=== PATIENT | male | born 1935 | race Caucasian/White ===

== ENCOUNTER 2021-09-20 14:00 | Emergency (ER) | payer MEDICARE, SELFPAY ==
[2021-09-20 14:28] VITALS: BP 128/73; PULSE 110; PULSE 40; RESP 28; RESP 36; TEMP 36.9; O2SAT 76; O2SAT 91
[2021-09-20 14:34] VITALS: PULSE 40
--- NOTE | 2021-09-20 14:35 | ED.SOB ---
HPI - SOB/Dyspnea General Chief Complaint: Shortness of Breath/Dyspnea Stated Complaint: Shortness of breath Time Seen by Provider: 09/20/21 14:16 Source: patient, family and RN notes reviewed Mode of arrival: ambulatory ( with walker) Limitations: no limitations History of Present Illness HPI Narrative: Patient arrives with family member complaining of cough and shortness of breath for some time. Symptoms have worsened over the last 2 days. Patient was diagnosed pneumonia, based on symptoms, over the phone, by his PCP and placed on azithromycin and prednisone. History of COPD and is on home oxygen at 2 L. Because the symptoms have been worsening, family has sought treatment here wanting IV fluids and IV antibiotics. They state that patient is at the point where he is likely going to be on hospice soon. He does not want to be admitted to the hospital and that is why they did not seek treatment in the ER today. MD elicited complaint: shortness of breath Related Data Home Medications Medication Instructions Recorded Confirmed acetaminophen-codeine tablet 09/20/21 alendronate mg PO 09/20/21 azithromycin 09/20/21 brimonidine [Alphagan P] drp 09/20/21 dorzolamide 1 drp EACH EYE DAILY 09/20/21 doxepin 100 mg PO DAILY 09/20/21 enalapril maleate 10 mg PO DAILY 09/20/21 [id number]-[id number]-[id number] 1 inh INHALATION 09/20/21 [Trelegy Ellipta] furosemide 20 mg PO DAILY 09/20/21 prednisone 10 mg PO DAILY 09/20/21 travoprost 1 drp EACH EYE DAILY 09/20/21 Allergies Allergy/AdvReac Type Severity Reaction Status Date / Time No Known Allergies Allergy Verified 09/20/21 14:30 Review of Systems Review of Systems: CONSTITUTIONAL: Denies body aches, fever, chills, or sweats. EYES: Denies visual changes, redness, or discharge. ENT: Denies rhinorrhea, congestion, sore throat, or otalgia. CARDIOVASCULAR: Denies chest pain, palpitations, or edema. RESPIRATORY: + Cough, worsening shortness of breath GASTROINTESTINAL: Denies abdominal pain, nausea, vomiting, or diarrhea. GENITOURINARY: Denies dysuria or hematuria. SKIN: Denies rash, itching, or wounds. MUSCULOSKELETAL: Denies back pain, joint pain, or myalgia. NEUROLOGIC: Denies headache, numbness, tingling, or weakness. PSYCH: Denies depression or anxiety. [facility] Past Medical History Medical History COPD (chronic obstructive pulmonary disease) On home oxygen therapy Comments At time of signature, I have reviewed and agree with nursing past medical, surgical, social and family history unless otherwise noted. Please see nursing chart for further information. There is no relevant family history pertinent to the presenting complaint Exam Narrative: GENERAL: Ill-appearing. HEAD: Normocephalic, atraumatic. EYES: EOMI. No redness or drainage. Conjunctivae normal. ENT: Mucous membranes pink and moist. NECK: Normal AROM. CHEST: Marked respiratory distress. Inspiratory wheezing throughout. Diminished in bases. Abdominal breathing with retractions. Tachypnea. HEART: Irregularly irregular. Bradycardic. No murmur appreciated. ABDOMEN: Soft, nontender, nondistended, normal active bowel sounds. EXTREMITIES: Normal range of motion. No edema. Cold extremities and pallor. SKIN: Warm, dry, no rash. Capillary refill >3 sec. Normal skin turgor. NEURO: No focal deficits. Alert and oriented x3. Gait unsteady with walker. PSYCH: Normal affect. No signs of depression or anxiety. Course Course Emergency Course: Patient was placed on 4 L nasal cannula as well as nonrebreather via concentrator upon arrival. Patient has refused ambulance transfer and has signed an AMA form to this effect. Level of Care: Express Care Visit Vital Signs Vital signs: Vital Signs Temperature 98.5 F 09/20/21 14:28 Pulse Rate 40 L 09/20/21 14:28 Respiratory Rate 36 H 09/20/21 14:28 Blood Pressure 128/73 09/20/21 14:28 Pulse Oximetry
== END 2021-09-20 14:40 | disposition short-term general hospital (02) ==
PROVIDERS: Emergency Provider Nurse Practitioner
DX: R06.03 Acute respiratory distress (principal); R09.02 Hypoxemia; J44.9 Chronic obstructive pulmonary disease, unspecified; Z99.81 Dependence on supplemental oxygen
CPT/HCPCS: 99202; G0463

== ENCOUNTER 2021-09-20 15:00 | Inpatient (IN) | payer MEDICARE, SELFPAY ==
[2021-09-20] VITALS (14 sets, daily range): BP systolic 89–132; BP diastolic 56–86; PULSE 92–117; RESP 18–28; TEMP 36.1; O2SAT 84–98
--- NOTE | ~2021-09-20 | XR_ITS ---
EXAMINATION: XR chest 1V portable DATE: 09/21/2021 10:09 INDICATION: Increasing oxygen requirements TECHNIQUE: frontal view of the chest was obtained. COMPARISON: Chest radiograph dated 09/20/2021 FINDINGS: Opacities throughout both lungs relatively sparing the right upper lung. Suggestion of a suture line in the right upper lung zone. Increase in size of a small left pleural effusion. No pneumothorax or r ight pleural effusion. Cardiomegaly. Multiple bilateral rib fractures, more likely chronic. IMPRESSION: 1. Decrease in size of a small left pleural effusion. 2. Persistent diffuse bilateral lung disease which could represent pulmonary edema and/or pneumonia. Reviewed, dictated and finalized at location A. H HEALER IMPRESSION: 1. Decrease in size of a small left pleural effusion. 2. Persistent diffuse bilateral lung disease which could represent pulmonary ed mira and/or pneumonia.
--- NOTE | ~2021-09-20 | US_ITS ---
EXAMINATION: US renal BI EXAM DATE: 09/21/2021 10:12 INDICATION: Acute kidney insufficiency. TECHNIQUE: Multiple grayscale and Doppler images of the kidneys were obtained (by a technologist who performed the scan) and subsequently reviewed. There is no prior study for comparison. FINDINGS: There is bilateral renal cortical thinning. Right kidney: There is normal contour and echogenicity. It measures 9.5 x 4.0 x 3.7 centimeters. The re is a 9 mm cyst. There is no hydronephrosis. Left kidney: There is normal contour and echogenicity. It measures 10.3 x 4.1 x 5.6 centimeters. Sev eral cysts, largest measuring 4.3 cm. There is no hydronephrosis. Munoz catheter within a collapsed bladder. IMPRESSION: 1. Renal cysts. 2. Renal cortical thinning. 3. No hydronephrosis. Reviewed, dictated and finalized at location B. [employer]
--- NOTE | ~2021-09-20 | US_ITS ---
EXAMINATION: US venous doppler UE DATE: 09/21/2021 13:50 INDICATION: Respiratory abnormality with increasing oxygen requirements TECHNIQUE: Grayscale images without and with compression and Doppler images of the bilateral upper ex tremity veins were obtained. COMPARISON: None. FINDINGS: The right internal jugular vein, subclavian vein, axillary vein, brachial vein, basilic vein, cephali c vein, radial vein, and ulnar vein are patent. The left internal jugular vein, subclavian vein, axillary vein, brachial vein, basilic vein, radial v ein, and ulnar vein are patent. The left cephalic vein was identified. IMPRESSION: 1. Patent bilateral upper extremity veins. No evidence of venous thrombosis. Reviewed, dictated and finalized at location A. WRITING EXPERT
--- NOTE | ~2021-09-20 | US_ITS ---
EXAMINATION: US venous doppler [facility] DATE: 09/21/2021 13:49 INDICATION: Respiratory abnormality with increasing oxygen requirements. TECHNIQUE: Grayscale ultrasound images without and with compression and Doppler ultrasound images of the bilateral lower extremity veins were obtained. COMPARISON: None. FINDINGS: The visualized portions of right common femoral vein, profunda (deep) femoral vein, femoral vein, pop liteal vein, posterior tibial veins, peroneal veins, gastrocnemius vein and greater saphenous vein ou tflow are patent. The visualized portions of left common femoral vein, profunda femoral vein, femoral vein, popliteal v ein, posterior tibial veins, peroneal veins, gastrocnemius vein and greater saphenous vein outflow ar e patent. IMPRESSION: 1. No deep venous thrombosis in either lower limb. Reviewed, dictated and finalized at location A. CREAM SERVER
--- NOTE | ~2021-09-20 | NM_ITS ---
EXAMINATION: NM pulmonary perfusion DATE: 09/20/2021 21:44 INDICATION: Shortness of breath. TECHNIQUE: 5.4 mCi Tc-99m MAA was administered intravenously for perfusion images. Scintigraphic jg ges of the chest were obtained. COMPARISON: Chest 2 views 09/20/21 FINDINGS: Perfusion images show matched moderate sized and large defects involving all lobes. IMPRESSION: 1. Nondiagnostic (intermediate probability for pulmonary embolism). Reviewed, dictated and finalized at location E. R POLLUTION CONTROL INSPECTOR
--- NOTE | ~2021-09-20 | XR_ITS ---
EXAMINATION: XR chest 2V EXAM DATE: 09/20/2021 16:16 INDICATION: SOB, COPD TECHNIQUE: Frontal and lateral projections of the chest obtained and reviewed. There is no prior eric dy for comparison. FINDINGS: Extensive bilateral pneumonia or edema, relative sparing of the right upper lobe. There is moderate-sized gastroesophageal hiatal hernia. There are multiple bilateral rib fractures, appear ch ronic on the left, could be subacute on the right. These have significant angulation. No pneumothorax . Small to moderate left pleural effusion. Cardiomegaly and congestion. IMPRESSION: 1. Extensive bilateral pneumonia or edema. 2. Cardiomegaly, small to moderate left pleural effusion. 3. Multiple bilateral rib fractures. 4. Moderate hiatal hernia. Reviewed, dictated and finalized at location B. R SERVICES SPECIALIST
--- NOTE | 2021-09-20 15:51 | ECG_ITS ---
Rate 103 OR 197 QRSd 100 QT 343 QTc 449 --[place]-- P 9 QRS -16 T 30 SINUS TACHYCARDIA ATRIAL AND VENTRICULAR PREMATURE COMPLEXES DELAYED PRECORDIAL R/S TRANSITION LOW QRS VOLTAGE IN LIMB LEADS CONSIDER INFERIOR INFARCT, AGE INDETERMINATE BASELINE ARTIFACT- I, II, III, AVR, AVL, AVF, V1, V3-V6 ABNORMAL ECG Electronically Signed On 09-22-2021 8:00:26 IMPORT AND EXPORT CLERK by Anand THOMAS
[2021-09-20 16:01] LABS: Basophils Percent Auto 0.2 % (0.2-1.2); Hematocrit 37.1 % (42.0-52.0); Hemoglobin 12.2 g/dL (14.0-18.0); Immature Granulocyte Percent A 0.6 % (0-0.5); Lymphocytes Absolute Auto 0.17 K/mm3 (0.9-3.2); Mean Corpuscular HGB Conc 32.9 g/dl (32-36); Mean Corpuscular Hemoglobin 33.8 pg (26-34); Mean Corpuscular Volume 102.8 fl (80-100); Mean Platelet Volume 11.9 fl (7.4-10.4); Monocytes Absolute Auto 0.7 K/mm3 (0.1-0.6); Monocytes Percent Auto 4.3 % (2.6-8.5); Neutrophils Absolute Auto 15.4 K/mm3 (1.3-6.7); Neutrophils Percent Auto 93.9 % (45.5-73.1); Nucleated Red Blood Cells Perc 0.1 % (0.0-0.2); Platelet Count Result 293 k/mm3 (150-375); Red Blood Count 3.61 M/mm3 (4.6-6.20); Red Cell Distribution Width 14.3 % (11.5-14.5); White Blood Count 16.4 K/mm3 (4.5-10.0)
[2021-09-20 16:12] LABS: Partial Thromboplastin Time 32.6 SECONDS (22.3-36.8); Prothrombin Time 13.3 Seconds (11.1-14.7)
[2021-09-20 16:16] LABS: Potassium 5.5 mmol/L (3.4-5.0)
[2021-09-20 16:41] LABS: Alanine Aminotransferase 33 U/L (4-50); Albumin Level 3.6 g/dL (3.5-5.1); Alkaline Phosphatase 107 U/L (38-126); Anion Gap 12 mmol/L (8-16); Aspartate Amino Transferase 52 U/L (17-59); Bilirubin,Total 0.4 mg/dL (0.2-1.3); Blood Urea Nitrogen 76 mg/dL (9-20); Calcium 8.7 mg/dL (8.4-10.2); Carbon Dioxide 24 mmol/L (22-30); Chloride 100 mmol/L (98-107); Estimated CRCL calculation 12 ml/min; Estimated Glomerular Filt Rate 17; Glucose 153 mg/dL (65-110); NT Pro B Type Natriuretic Pept 13900 pg/mL (5-100); Sodium 136 mmol/L (137-145); Troponin I 0.089 ng/mL (0.000-0.034)
--- NOTE | 2021-09-20 16:42 | ED.GENADULT ---
HPI - General Adult General Chief complaint: Shortness of Breath/Dyspnea Stated complaint: Low O2 Time Seen by Provider: 09/20/21 16:12 Source: patient, family and RN notes reviewed History of Present Illness HPI narrative: Patient is a 85 y/o male complaining of severe SOB for several days. He states that minimal exertion worsens his SOB. He has some cough. He has some left sided chest pain a few days, but that has resolved. He has history of COPD and he is on O2. He states that his PCP called in Z pack and steroids in 2 days ago, but his symptoms have not improved. Related Data Home Medications Medication Instructions Recorded Confirmed acetaminophen-codeine tablet 09/20/21 alendronate mg PO 09/20/21 azithromycin 09/20/21 brimonidine [Alphagan P] drp 09/20/21 dorzolamide 1 drp EACH EYE DAILY 09/20/21 doxepin 100 mg PO DAILY 09/20/21 enalapril maleate 10 mg PO DAILY 09/20/21 [id number]-rhaseuigp-tqkszljj 1 inh INHALATION 09/20/21 [Trelegy Ellipta] furosemide 20 mg PO DAILY 09/20/21 prednisone 10 mg PO DAILY 09/20/21 travoprost 1 drp EACH EYE DAILY 09/20/21 Allergies Allergy/AdvReac Type Severity Reaction Status Date / Time No Known Allergies Allergy Verified 09/20/21 14:30 Review of Systems Constitutional: Constitutional: Denies chills, Denies fever(s), Denies headache(s) and Denies weakness Eyes: Eyes: Denies blurry vision ENT: Denies headache(s) and Denies neck pain Cardiovascular: Cardiovascular: Denies chest pain and Reports dyspnea Respiratory: Respiratory: Reports cough and Reports dyspnea Gastrointestinal: Gastrointestinal: Denies abdominal pain, Denies diarrhea, Denies nausea and Denies vomiting Genitourinary: Genitourinary: Denies hematuria and Denies dysuria Musculoskeletal: Musculoskeletal: Denies back pain and Denies neck pain Neurologic: Denies headache(s) and Denies weakness PMFSH Past Medical History Medical History COPD (chronic obstructive pulmonary disease) On home oxygen therapy Social History Social History Smoking status: Former smoker Alcohol intake: never Substance use: never Substance use type: does not use Spiritual care concerns: No Exam Const: General: in distress and ill appearing Orientation/consciousness: oriented to person, oriented to place, oriented to time and patient oriented x3 HENMT: Head: normocephalic Ears: external ears normal General nose exam: Normal external nose present Eyes: General: appearance normal, both eyes and all related structures Conjunctivae: conjunctivae normal Neck: Neck: normal visual inspection and full ROM Chest: Chest palpation & inspection: normal inspection of the chest and no tenderness Resp: Effort & Inspection: respiratory distress and tachypneic Auscultation: diminished lung sounds Cardio: Rate: regular rate Rhythm: regular rhythm GI: GI Palp: No abdominal tenderness and Yes Soft to palpation Skin: General skin exam: normal color and turgor normal Neuro: General: oriented to person, oriented to place, oriented to time and patient oriented x3 Cognition (Neuro): normal cognition Extrem: General: normal to inspection, full ROM and no pedal edema Psych: Appearance: grossly normal Mental Status: mental status grossly normal Affect: normal affect Course Consultations Consultation #1: Discussed with Dr. Ornelas (PCP), who agrees with plan for admission. He states that patient's renal function is near normal at base and current renal failure is new. Date: 09/20/21 Time: 18:03 Consultation #2: Discussed with FATIMAH Rosenberg, who agrees to admit. Date: 09/20/21 Time: 18:34 Vital Signs Vital signs: Vital Signs Temperature 36.1 C L 09/20/21 15:08 Pulse Rate 117 H 09/20/21 15:08 Respiratory Rate 26 H 09/20/21 15:08 Blood Pressure 116/66 09/20/21 15:08 Pulse Oximetry 84 L 09/20/21 1
[2021-09-20] MEDS: FUROSEMIDE INJ 40 MG/4 ML VIAL IV PUSH (16:44)
--- NOTE | 2021-09-20 16:45 | PC.NURSE ---
Unable to perform accurate EKG due to abdominal breathing of patient creating false baseline on EKG. MD Wu made aware and notified to attempt EKG at another time.
[2021-09-20 17:03] LABS: Alveolar/Arterial O2 Gradient 128.2 mmHg; Base Excess ABG -3.8 mEq/l (+/-2.0); Device NASAL CANNULA; Fractional Inspired Oxygen 32 %; HCO3 ABG 20.9 mEq/l (22.0-26.0); Modified Allen's Test Pass; Oxygen Content ABG 15.2 %vol (16.0-22.0); Oxygen Saturation ABG 89.1 % (95.0-100.0); Oxyhemoglobin 86.3 % THb (90.0-100.0); PCO2 ABG 36.9 mmHg (35.0-45.0); PO2 ABG 56.8 mmHg (80.0-100.0); PO2 FiO2 Ratio Arterial Blood 1.77 %; Site Drawn LEFT RADIAL; Total Hemoglobin 12.5 g/dL (12.0-18.0); pH ABG 7.372 (7.350-7.450)
[2021-09-20 17:04] LABS: D Dimer 2.27 ug/mL (<0.48)
[2021-09-20] MEDS: IPRATROPIUM BR 0.02% INH SOLN 0.5 MG/2.5 ML VIAL INHALATION ×2 (17:04→21:12)
[2021-09-20] MEDS: ALBUTEROL SULFATE NEB 2.5 MG/0.5 ML INH INHALATION ×2 (17:04→21:12)
[2021-09-20 17:57] LABS: SARS-CoV-2 RNA PCR Negative
--- NOTE | 2021-09-20 18:36 | PC.NURSE ---
Pt son, Alexei Bradshaw, phone number is [phone].
--- NOTE | 2021-09-20 20:30 | PM.IMHP ---
H&P: HPI History of Present Illness Date/Time: 09/20/21 20:30 Chief Complaint: Shortness of breath PMFSH Past Medical History Medical History COPD (chronic obstructive pulmonary disease) On home oxygen therapy Social History Social History Smoking status: Former smoker Alcohol intake: never Substance use: never Substance use type: does not use Spiritual care concerns: No Meds Home Medications and Allergies Home Medications Medication Instructions Recorded Confirmed Type acetaminophen-codeine 300 tablet PO QID PRN 09/20/21 09/20/21 History alendronate 70 mg PO WEEKLY 09/20/21 09/20/21 History brimonidine [Alphagan P] 1 drp EACH EYE BID 09/20/21 09/20/21 History dorzolamide 1 drp EACH EYE TID 09/20/21 09/20/21 History doxepin 100 mg PO QPM 09/20/21 09/20/21 History enalapril maleate 10 mg PO DAILY 09/20/21 09/20/21 History furosemide 20 mg PO DAILY 09/20/21 09/20/21 History prednisone 10 mg PO DAILY 09/20/21 09/20/21 History travoprost 1 drp EACH EYE QPM 09/20/21 09/20/21 History Allergies Allergy/AdvReac Type Severity Reaction Status Date / Time No Known Allergies Allergy Verified 09/20/21 14:30 Vital Signs Vital Signs - 24 hr 09/20/21 15:08 09/20/21 15:41 09/20/21 16:30 Temperature 96.9 F L Pulse Rate 117 H 104 H Respiratory Rate 26 H 28 H Blood Pressure 116/66 89/57 L Pulse Oximetry 84 L 96 95 09/20/21 17:45 09/20/21 18:34 09/20/21 18:48 Temperature Pulse Rate 106 H 102 H Respiratory Rate 24 H 24 H Blood Pressure 105/68 126/86 Pulse Oximetry 96 93 98 09/20/21 19:35 Temperature Pulse Rate 112 H Respiratory Rate 27 H Blood Pressure 105/56 L Pulse Oximetry 97 H&P: Results Labs Labs: Short CBC 09/20/21 Range/Units 15:52 WBC 16.4 H (4.5-10.0) K/mm3 Hgb 12.2 L (14.0-18.0) g/dL Hct 37.1 L (42.0-52.0) % Plt Count 293 (150-375) k/mm3 BMP 09/20/21 15:52 Sodium 136 L Potassium 5.5 H Chloride 100 Carbon Dioxide 24 BUN 76 H Creatinine 3.40 H Glucose 153 H Calcium 8.7 Cardiac Enzymes 09/20/21 Range/Units 15:52 Troponin I 0.089 H* (0.000-0.034) ng/mL Liver Function 09/20/21 Range/Units 15:52 Total Bilirubin 0.4 (0.2-1.3) mg/dL AST 52 (17-59) U/L ALT 33 (4-50) U/L Alkaline Phosphatase 107 (38-126) U/L Albumin 3.6 (3.5-5.1) g/dL Assessment and Plan Assessment and plan (1) Acute exacerbation of chronic obstructive pulmonary disease: Code(s): J44.1 - Chronic obstructive pulmonary disease with (acute) exacerbation Status: Acute Assessment and Plan: Admit to IMU Continuous telemetry Continuous pulse ox Bed rest Breathing treatments q.4 hours Systemic steroids (2) Acute and chronic respiratory failure with hypoxia: Code(s): J96.21 - Acute and chronic respiratory failure with hypoxia Status: Acute Assessment and Plan: Currently on BiPAP Try and keep oxygen saturation in between 90-94% (3) Ribs, multiple fractures: Code(s): S22.49XA - Multiple fractures of ribs, unspecified side, initial encounter for closed fracture Status: Acute Assessment and Plan: Patient with history of osteoporosis Pain management Incentive spirometry Continue to monitor (4) Opacities of both lungs present on chest x-ray: Code(s): R91.8 - Other nonspecific abnormal finding of lung field Status: Acute Assessment and Plan: Due to multiple rib fractures could this be secondary to trauma resulting in contusion lung. Will obtain CT high-resolution of the chest Supportive care Blood cultures in progress Started on Rocephin and Zithromax (5) TAE (acute kidney injury): Code(s): N17.9 - Acute kidney failure, unspecified Status: Acute Assessment and Plan: Unknown baseline Munoz catheter in Renal ultrasound in
[2021-09-20] MEDS: methylPREDNISolone SOD SUCC 125 MG VIAL IV PUSH (20:47)
--- NOTE | 2021-09-20 21:52 | PC.NURSE ---
Pt unable to void, given 40 Lasix prior to this RN arrival. Discussed donis catheter w/ patient.
--- NOTE | 2021-09-20 21:54 | PC.NURSE ---
Pt refusing urinary catheter at this time.
--- NOTE | 2021-09-20 22:20 | ADMGEN ---
This patient, Derick Johnson, was admitted to IMU Room 212-01. Patient/family oriented to hospital policies and general routines including ID bracelet, bed and alarms, visiting hours, pain management, procedures, bathroom and other care routines, personal items, smoking policy, room service/diet, and visiting hours. Information on how to activate the Rapid Response Team has been discussed. Patient/Family are encouraged to report perceived risks to care and to ask questions if they do not understand what they are told or what they should do.
[2021-09-20] MEDS: IPRATROPIUM BR 0.02% INH SOLN 0.5 MG/2.5 ML VIAL (23:25)
[2021-09-20] MEDS: ALBUTEROL SULFATE NEB 2.5 MG/0.5 ML INH 5 MG (23:25)
[2021-09-20] MEDS: FUROSEMIDE INJ 40 MG/4 ML VIAL 20 MG IV PUSH (23:37)
[2021-09-20] MEDS: MORPHINE SULFATE (*CRX) 2 MG/ML INJ 1 MG IV PUSH (23:37)
[2021-09-20] MEDS: LORazepam INJ (*CRX) 2 MG/ML VIAL 1 MG IV PUSH (23:38)
[2021-09-20] MEDS: ALBUTEROL SULFATE NEB 2.5 MG/0.5 ML INH 5 MG INHALATION (23:44)
[2021-09-20] MEDS: IPRATROPIUM BR 0.02% INH SOLN 0.5 MG/2.5 ML VIAL 2 MG INHALATION (23:45)
[2021-09-21] VITALS (28 sets, daily range): BP systolic 102–127; BP diastolic 51–90; PULSE 96–116; RESP 20–35; TEMP 36.4–36.8; O2SAT 90–100; BMI 20.6
--- NOTE | 2021-09-21 | ECHO_ITS ---
Patient Info Name: Derick Johnson Age: 85 years : 1935 Gender: Male Ht: 66 in Wt: 127 lbs BSA: 1.63 m2 HR: 102 bpm BP: 105 / 51 mmHg Heart Rhythm: Tachycardia Technical Quality: Fair Exam Date: 09/21/2021 9:16 AM Exam Location: [facility] Patient Status: Inpatient Admit Date: 09/20/2021 Staff Ordering Physician: Arvind Steward MD Real Estate Acquisition Analyst: Bri Villarreal RDCS Attending Provider: Aure Reddy NP Referring Physician: Nichelle GALLEGO; Exam Type: CA echo doppler color flow Study Info Indications - chf Complete two-dimensional, color flow and Doppler transthoracic echocardiogram is performed with contrast to opacify the left ventricle and to improve the deliniation of the left ventricle endocardial borders. Summary 1. Technically difficult study, suboptimal image quality. Normal LV size, mild LVH. Normal LV systolic function, ejection fraction 50-60% with variable LV contractility. Indeterminate diastolic function. Normal mitral valve structure. Aortic valve is mildly calcified, moderate aortic stenosis with calculated valve area 1.3 cm2, maximum velocity 1.8 m/sec, mean gradient 8 mmHg. Tricuspid valve is not well visualized. RVSP 23 mmHg, which is probably an under estimation of PA pressures. Sinus tachycardia. Left Ventricle Left ventricular chamber dimension is normal. Left ventricular systolic function is normal, estimated at 55-60%. There is mildly increased left ventricular wall thickness. The left ventricular diastolic function is indeterminate. Left Atria Left atrial chamber dimension is normal. Aortic Valve There is moderate aortic valve stenosis with a peak velocity of 178 cm/s, mean gradient of 8 mmHg, and aortic valve area of 1.3 cm2. There is mild aortic valve calcification. Pulmonic Valve The pulmonic valve is not well visualized. Mitral Valve The mitral valve has normal leaflets. Tricuspid Valve The tricuspid valve leaflets are not well visualized. Pericardium/Pleural The pericardium appears epicardial fat pad. Aorta The aortic root size at the sinus of Valsalva is normal. Left Ventricular Outflow Tract Name Value Normal LVOT 2D LVOT Diameter 2.0 cm LVOT Doppler LVOT Peak Gradient 2 mmHg LVOT Mean Gradient 1 mmHg LVOT VTI 13 cm LVOT VTI/AV VTI Ratio 0.4 LVOT Stroke Volume 41 ml LVOT CO 4.2 l/min LVOT CI 2.5 l/min/m2 Pulmonic Valve Name Value Normal RVOT Doppler RVOT Peak Gradient 2 mmHg PV Doppler PV Peak Gradient 3 mmHg Tricuspid Valve
[2021-09-21] MEDS: cefTRIAXone 2 GM in SODIUM CHLORIDE 0.9% IV 100 ML 200 ML IVPB (03:15)
[2021-09-21] MEDS: methylPREDNISolone SOD SUCC 40 MG VIAL IV PUSH ×4 (03:16→21:17)
[2021-09-21] MEDS: IPRATROPIUM BR 0.02% INH SOLN 0.5 MG/2.5 ML VIAL INHALATION ×4 (03:25→20:03)
[2021-09-21] MEDS: ALBUTEROL SULFATE NEB 2.5 MG/0.5 ML INH INHALATION ×4 (03:26→20:03)
[2021-09-21 03:30] LABS: Anion Gap 13 mmol/L (8-16); Blood Urea Nitrogen 81 mg/dL (9-20); Calcium 8.3 mg/dL (8.4-10.2); Carbon Dioxide 22 mmol/L (22-30); Chloride 100 mmol/L (98-107); Estimated CRCL calculation 12 ml/min; Estimated Glomerular Filt Rate 16; Glucose 203 mg/dL (65-110); Potassium 4.8 mmol/L (3.4-5.0); Sodium 135 mmol/L (137-145)
[2021-09-21 04:19] LABS: Troponin I 0.061 ng/mL (0.000-0.034)
--- NOTE | 2021-09-21 09:08 | PM.IMPN ---
Progress Note: A&P Assessment and Plan (1) Acute exacerbation of chronic obstructive pulmonary disease: Code(s): J44.1 - Chronic obstructive pulmonary disease with (acute) exacerbation Status: Acute Assessment and Plan: Admit to IMU Continuous telemetry Continuous pulse ox Bed rest Breathing Nebs and treatments q.4 hours scheduled. Systemic steroids struggling with breathing since admission. on BiPAP and has remained on BiPAP all morning. unable to wean. considering hospice, but he could not decide for or against hospice today. spoke with the patient's zyiydwxd-aw-aks Emily Martinez ( ) for quite some time, consulted thermal surfacing machine operator as well as cabin equipment supervisor. Nephrology was already consulted in the ER. end-stage COPD for some time. getting progressively worse and weaker, with worsening respiratory symptoms. DNR code status, not a full code. placing a consultation to care coordination for them to set up a hospice family meeting. COVID negative, with a D-dimer of 2.27 and his pulmonary imaging showed an intermediate probability of PE. Director Of Social Services ordered further venous Dopplers. ordered an BNP, Trop, ABG, a chest x-ray and an echo, awaiting the renal ultrasound and CT scan results, continuing to hold any further diuresis at this time. (2) Acute and chronic respiratory failure with hypoxia: Code(s): J96.21 - Acute and chronic respiratory failure with hypoxia Status: Acute Assessment and Plan: Currently on BiPAP Try and keep oxygen saturation in between 90-94% See above COPD exacerbation plan (3) Ribs, multiple fractures: Code(s): S22.49XA - Multiple fractures of ribs, unspecified side, initial encounter for closed fracture Status: Acute Assessment and Plan: Patient with history of osteoporosis Pain management - continues to point and hold onto left chest wall laterally - daughter in law confirmed patient was having left sided chest pain at home prior to admission. Incentive spirometry Patient now resting, while on BiPAp. Continue to monitor (4) Opacities of both lungs present on chest x-ray: Code(s): R91.8 - Other nonspecific abnormal finding of lung field Status: Acute Assessment and Plan: Due to multiple rib fractures could this be secondary to trauma resulting in contusion lung. Will obtain CT high-resolution of the chest Supportive care Blood cultures in progress Started on Rocephin and Zithromax COntinue above COPD exacervation plan. (5) TAE (acute kidney injury): Code(s): N17.9 - Acute kidney failure, unspecified Status: Acute Assessment and Plan: Unknown baseline as no previous medical records to review at this time. Munoz catheter in Renal ultrasound showed: Renal cystsRenal cortical thinning.No hydronephrosis Patient on diuretics - currently holding Lasix and enalapril -awaiting supervising floorperson consultation recommendations Creatinine continue to rise is with a creatinine of 3.6, potassium 4.8, sodium 135 Repeat BMP in a.m. IV Fluids or fluid overload not a good idea due to patient's tenuous respiratory status combined with acute renal failure. (6) Osteoporosis: Code(s): M81.0 - Age-related osteoporosis without current pathological fracture Status: Acute Assessment and Plan: On alendronate Follow-up in outpatient setting chronic Subjective Date/time seen: 09/21/21 09:08 Derick has been struggling with breathing since admission. He is currently on BiPAP and has remained on BiPAP all morning. His nurse and the patient has also attempted to wean from BiPAP, with patient becoming air hungry. He was able to communicate to me that he has been considering hospice, but he could not decide for or against hospice today. I telephoned and spoke with the patient's hfunwovi-fq-lrr Emily Martinez ( ) for quite some time, we reviewed the results of his lab work and testing and lon
[2021-09-21] MEDS: LORazepam INJ (*CRX) 2 MG/ML VIAL 1 MG IV PUSH ×2 (09:47→23:44)
[2021-09-21 10:40] LABS: Basophils Absolute Auto 0.1 K/mm3 (0.0-0.1); Basophils Percent Auto 0.6 % (0.2-1.2); Eosinophils Absolute Auto 0.1 K/mm3 (0-0.3); Eosinophils Percent Auto 0.3 % (0-4.4); Hematocrit 36.6 % (42.0-52.0); Hemoglobin 11.7 g/dL (14.0-18.0); Immature Granulocyte Absolute 0.14 K/mm3 (0.00-0.031); Immature Granulocyte Percent A 0.9 % (0-0.5); Lymphocytes Absolute Auto 0.26 K/mm3 (0.9-3.2); Lymphocytes Percent Auto 1.7 % (18.3-44.2); Mean Corpuscular Hemoglobin 33.1 pg (26-34); Mean Corpuscular Volume 103.4 fl (80-100); Mean Platelet Volume 11.9 fl (7.4-10.4); Monocytes Absolute Auto 0.5 K/mm3 (0.1-0.6); Monocytes Percent Auto 3.1 % (2.6-8.5); Neutrophils Absolute Auto 14.4 K/mm3 (1.3-6.7); Neutrophils Percent Auto 93.4 % (45.5-73.1); Platelet Count Result 269 k/mm3 (150-375); Red Blood Count 3.54 M/mm3 (4.6-6.20); Red Cell Distribution Width 14.6 % (11.5-14.5); White Blood Count 15.4 K/mm3 (4.5-10.0)
--- NOTE | 2021-09-21 10:42 | PM.CNNEP ---
Assessment and Plan Assessment and plan (1) TAE (acute kidney injury): Code(s): N17.9 - Acute kidney failure, unspecified Status: Acute Assessment and Plan: reportedly near normal baseline per ER discussion with PCP - obtain old records etiology?? renal ultrasound pending check UA, urine electrolytes, urine eosinophils, and CPK follow repeat labs and UOP (2) Acute and chronic respiratory failure with hypoxia: Code(s): J96.21 - Acute and chronic respiratory failure with hypoxia Status: Acute Assessment and Plan: due to combination of CHF and COPD along with possibly pneumonia treatment as outlined (3) CHF (congestive heart failure): Qualifiers: Heart failure chronicity: acute on chronic Heart failure type: unspecified Qualified Code(s): I50.9 - Heart failure, unspecified Code(s): I50.9 - Heart failure, unspecified Status: Acute Assessment and Plan: IV diuretics follow I/Os daily weights Cardiology consulted follow-up on Echo (4) COPD exacerbation: Code(s): J44.1 - Chronic obstructive pulmonary disease with (acute) exacerbation Status: Acute Assessment and Plan: on nebulizer treatments, steroids, and supplemental oxygen Pulmonary consulted follow imaging (5) Pneumonia: Code(s): J18.9 - Pneumonia, unspecified organism Status: Acute Assessment and Plan: as suggested by admission imaging follow blood cultures on antibiotics (6) Ribs, multiple fractures: Code(s): S22.49XA - Multiple fractures of ribs, unspecified side, initial encounter for closed fracture Status: Acute Assessment and Plan: as noted by CXR pain control supportive therapy Will continue to follow. History of Present Illness Reason for Consult Consult date: 09/21/21 Reason for consult: acute renal failure Chief Complaint Chief complaint: copd, chf exacerbation, tae History of Present Illness Narrative: Most of the information I have obtained is from review of the electronic medical record as well as discussion with the physician/ nurses involved in the patient's care as the patient appears to be BiPAP dependent at this time and mole John able to get answers to yes/no questions from the patient. The patient is an 85-year-old male with a past medical history as outlined below who presented to [facility] Emergency room with complaints of shortness of breath. The shortness of breath has been going on for last several days and he it is present both at rest as well as with minimal exertional activities. He apparently also has complaints of some cough and associated left-sided chest pain as well. Reportedly, when the symptoms initially started, his primary care physician prescribed a Z-Xander as well as steroids which was approximately 48 hours prior to admission but this has not really improved his symptoms whatsoever. Workup and evaluation emergency room demonstrated the patient to be in significant respiratory distress but otherwise hemodynamically stable. Routine blood tests were significant for a marked decline in his kidney function which apparently is a new issue along with changes consistent with what appeared to be a significant COPD exacerbation. There was some component of congestive heart failure as well but given his declining kidney function, diuresis was deferred. He was started on BiPAP therapy was some improvement in his oxygenation and he was subsequent admitted the hospital for further evaluation and therapy. Since his admission to the hospital, his respiratory status is not really improved whatsoever. Attempts at weaning his BiPAP of only resulted in air hunger and acute drops in his oxygen saturation. As already mentioned, he appears to be somewhat BiPAP dependent at the time of my visit. Renal consultation was requested due to his acute kidney injury/acute renal failu
[2021-09-21 10:52] LABS: Alanine Aminotransferase 33 U/L (4-50); Albumin Level 3.6 g/dL (3.5-5.1); Alkaline Phosphatase 105 U/L (38-126); Anion Gap 14 mmol/L (8-16); Aspartate Amino Transferase 37 U/L (17-59); Bilirubin,Total 0.4 mg/dL (0.2-1.3); Blood Urea Nitrogen 87 mg/dL (9-20); Calcium 8.4 mg/dL (8.4-10.2); Carbon Dioxide 22 mmol/L (22-30); Chloride 101 mmol/L (98-107); Estimated CRCL calculation 12 ml/min; Estimated Glomerular Filt Rate 16; Glucose 131 mg/dL (65-110); Magnesium 3.1 mg/dL (1.6-2.3); Phosphorus 6.9 mg/dL (2.5-4.5); Potassium 4.8 mmol/L (3.4-5.0); Sodium 137 mmol/L (137-145)
[2021-09-21 11:14] LABS: NT Pro B Type Natriuretic Pept 13000 pg/mL (5-100); Troponin I 0.044 ng/mL (0.000-0.034)
--- NOTE | 2021-09-21 11:14 | PM.CNCAR ---
Assessment and Plan Assessment and plan (1) COPD exacerbation: Code(s): J44.1 - Chronic obstructive pulmonary disease with (acute) exacerbation Status: Acute Assessment and Plan: 85-year-old male with hypertension, COPD on home oxygen. Patient has chronic respiratory failure and is on home oxygen. He was admitted to the hospital with worsening shortness of breath. ABG is consistent with hypoxemic respiratory failure. -currently on BiPAP -being managed by pulmonology (2) CHF (congestive heart failure): Qualifiers: Heart failure chronicity: acute on chronic Heart failure type: unspecified Qualified Code(s): I50.9 - Heart failure, unspecified Code(s): I50.9 - Heart failure, unspecified Status: Acute Assessment and Plan: Patient primarily presented with acute on chronic hypoxemic respiratory failure. He is currently on BiPAP and is being managed by primary team and pulmonology. His found to have elevated NTProBNP. He also has mild troponin elevation which is likely non ACS in the setting of respiratory failure, renal insufficiency. No acute ST segment abnormality on EKG. Patient is in sinus tachycardia which is appropriate in the setting of respiratory failure. V/Q scan reportedly nondiagnostic. Echocardiogram with Doppler has been ordered, results are pending at this time. Patient's code status has been changed to DNR. Conservative cardiac management is being anticipated. (3) TAE (acute kidney injury): Code(s): N17.9 - Acute kidney failure, unspecified Status: Acute Assessment and Plan: Diuretics have been held due to acute kidney injury. Hold CLAUDIA-inhibitor for now. Management as per primary team and Nephrology. (4) Acute and chronic respiratory failure with hypoxia: Code(s): J96.21 - Acute and chronic respiratory failure with hypoxia Status: Acute Assessment and Plan: As described above. Currently on BiPAP. Prognosis guarded. History of Present Illness History of Present Illness Consult date/time: 09/21/21 11:14 DATE OF CONSULT: 09/21/2019 to REASON FOR CONSULT: REQUESTING PHYSICIAN:Arvind Steward MD CHIEF COMPLAINT: CHF HPI: 85-year-old male with hypertension, COPD on home oxygen. Patient was brought to [facility] ER on 09/20/2021 with worsening shortness of breath. He is on home oxygen for chronic respiratory failure. His baseline functional status is not fully known. At the time of evaluation, patient was on BiPAP. I gathered information from review of the chart, from the hand model were patient's bedside and from the staff. As per staff, after discussion with family, patient's code status has been changed to DNR. COVID-19 negative. EKG on my personal evaluation showed sinus tachycardia, heart rate 110 beats per minute, PACs, artifact. Troponins minimally elevated with peak troponin 0.089 which [place] [address]. Chest x-ray showed Extensive bilateral pneumonia or edema, Cardiomegaly, small to moderate left pleural effusion. D-dimer 2.27. V/Q scan shows Nondiagnostic (intermediate probability for pulmonary embolism). On telemetry, patient is in sinus tachycardia will heart rate in 100s. No known prior cardiac history. There is no documented family history of coronary disease. Reason For Visit: copd, chf exacerbation, tae Review of Systems Review of Systems: Review of systems as per HPI. Other review of system could not be taken from the patient as he is on BiPAP and delirious. I personally other information from the chart, from the hand model and from the staff. His baseline functional status is unknown. Presented to the hospital with worsening shortness of breath. No documented chest pain. No syncope. [facility] Past Medical History Medical History COPD (chronic obstructive pulmonary disease) On home oxygen therapy Family His
[2021-09-21 11:19] LABS: Alveolar/Arterial O2 Gradient 161.5 mmHg; Base Excess ABG -1.3 mEq/l (+/-2.0); Fractional Inspired Oxygen 40 %; HCO3 ABG 24.2 mEq/l (22.0-26.0); Oxygen Content ABG 15.8 %vol (16.0-22.0); Oxygen Saturation ABG 94.2 % (95.0-100.0); Oxyhemoglobin 92.3 % THb (90.0-100.0); PCO2 ABG 43.7 mmHg (35.0-45.0); PO2 ABG 73.4 mmHg (80.0-100.0); PO2 FiO2 Ratio Arterial Blood 1.84 %; Total Hemoglobin 12.1 g/dL (12.0-18.0); pH ABG 7.362 (7.350-7.450)
[2021-09-21 11:20] LABS: Device NON-INVASIVE VENT; Modified Allen's Test Pass; Site Drawn RIGHT RADIAL
[2021-09-21 11:21] LABS: Non-Invasive Expiratory Pressure 8 CMH2O; Non-Invasive Inspiratory Pressure 12 CMH2O; Non-Invasive Vent Rate 4 /MIN
--- NOTE | 2021-09-21 11:36 | PM.CNPUL ---
Assessment and Plan Assessment and plan (1) COPD exacerbation: Code(s): J44.1 - Chronic obstructive pulmonary disease with (acute) exacerbation Status: Acute Assessment and Plan: Per per the chart patient is a former smoker and carries a diagnosis of COPD on 2 L nasal cannula oxygen. I have no PFTs or CT scans to assess for COPD. Currently the patient has no wheezes but is in acute hypoxemic respiratory failure with a blood gas of 7.37/37/57 on 3 L nasal cannula. Patient is DNR and at this time I think it is prudent to treat him for a possible COPD exacerbation with Solu-Medrol, albuterol and ipratropium nebulizers q.4 hours and empirically treat him for pneumonia with ceftriaxone and azithromycin. Regarding the possibility of PE patient has positive D-dimer and a perfusion scan that is intermediate. I will obtain upper and lower extremity Dopplers. Given his clinical picture and chest x-ray I think there are alternative reasons that are causing his respiratory failure. I would not empirically fully anticoagulate the patient. He is having increased work of breathing and I switched him to a noninvasive ventilator mode with AVAPS rate of 22, tidal volume 500, EPAP 8, minimal inspiratory pressure 9, maximal inspiratory pressure 30, inspiratory time 1.0 seconds, rise of 5 [address] is [address] slow [address] and 40% FiO2 and his saturations were 92% and he appeared more comfortable. will continue these settings for now. (2) CHF (congestive heart failure): Qualifiers: Heart failure chronicity: acute on chronic Heart failure type: unspecified Qualified Code(s): I50.9 - Heart failure, unspecified Code(s): I50.9 - Heart failure, unspecified Status: Acute Assessment and Plan: Patient with acute kidney injury, BNP of 13,900, positive troponins and chest x-ray consistent with edema. Patient has been given Lasix 20 mg IV X 1 and will monitor his fluid status and respiratory status. positive troponins. Echocardiogram has been ordered. Cardiology has been consulted. (3) Pneumonia: Code(s): J18.9 - Pneumonia, unspecified organism Status: Acute Assessment and Plan: Patient has a COVID RT PCR study that is negative. I will send influenza swab. Patient is empirically on ceftriaxone and azithromycin for community-acquired pneumonia. Blood cultures are pending. Will follow with you. History of Present Illness History of Present Illness Consult date: 09/21/21 Requesting physician: Aure Reddy NP Reason for consult: COPD and hypoxemia Chief complaint: copd, chf exacerbation, sung Narrative: 09/21/2021: This is a new pulmonary consult for COPD with hypoxemic respiratory failure. 85-year-old man was unable to give a history at this time. Per the chart patient has a history of COPD on 2 L nasal cannula who had a few weeks of shortness of breath and cough and was started on azithromycin prednisone per his primary physician. Patient presented to [facility] urgent care with shortness of breath and hypoxemia and was then brought to [facility] Emergency Department. Patient had a white blood cell count of 16.4, new onset acute kidney injury with a creatinine of 3.4 and a [place] 5[place] [address] a troponin of 0.89, D-dimer of 2.27, Chest x-ray with bilateral diffuse denied deter the interstitial and alveolar infiltrates with a left pleural effusion. There is evidence of kyphosis as well. Patient was initially treated for COPD exacerbation and pneumonia with steroids, bronchodilators, ceftriaxone and azithromycin, and IV Lasix. Patient had hypoxemia on 6 L nasal cannula and was started on BiPAP. Patient had a perfusion scan with matched moderate size large defects and all lungs final interpretation was intermediate. Patient is DNR 09/21/21 on entering the room patient was on BiPAP set rate of 4, pressure is 12/8 and 40% is saturations were 94% but patient was dyssynchronou
[2021-09-21 11:45] LABS: Add Urine Microscopic? YES; Appearance Urine Cloudy (Clear); Bacteria Urine Trace /hpf; Bilirubin Urine Negative (Negative); Blood Urine 3+ (Negative); Color Urine Yellow (Yellow); Glucose Urine UA Negative (Negative); Hyaline Casts Urine 50+ /lpf; Ketones Urine Negative (Negative); Leukocyte Esterase Ur 2+ LEU/UL (Negative); Mucus Urine Few /lpf; Nitrate Urine Negative (Negative); Protein Urine 1+ mg/dL (Negative); RBC Urine >75 /hpf (0-2); Specific Grav Ur 1.013 (1.001-1.035); Squamous Epithelial Cell Urine Few /hpf (Few); Urobilinogen Urine Negative mg/dL (<2.0); WBC Clumps Urine Present /HPF; WBC Urine >75 /hpf
[2021-09-21 11:55] LABS: Creatinine Urine 82.2 mg/dL; Total Protein Urine Random 27 mg/dL; Ur Ttl Prot Creatinine Ratio 0.33 mg/mg (0-0.20)
[2021-09-21 12:15] LABS: Sodium Urine Random 27 meq/L
--- NOTE | 2021-09-21 13:19 | PCRCNOTE ---
Window of time for administration has passed. See next scheduled administration.
--- NOTE | 2021-09-21 15:12 | P.CDI_ITS ---
CDI Query Clarification Request -Acute on Chronic CHF has been documented -09/20 BNP 38752 -09/20 CXR impression: 1.Extensive bilateral pneumonia or edema. 2. Cardiomegaly, small to moderate left pleural effusion. -Lasix 40mg IV and Lasix 20mg IV given -Echo summary: EF 50-60%; Indeterminate diastolic function Please further clarify type of CHF: * Systolic * Diastolic * Both Systolic and Diastolic * Unable to determine <Milka Govea - Last Filed: 09/21/21 15:23> Clarified Diagnosis (1) CHF (congestive heart failure): Qualifiers: Heart failure chronicity: acute on chronic Heart failure type: unspecified Qualified Code(s): I50.9 - Heart failure, unspecified <Milka Govea - Last Filed: 09/21/21 15:23> Code(s): I50.9 - Heart failure, unspecified <Milka Govea - Last Filed: 09/21/21 15:23> Status: Acute <Milka Govea - Last Filed: 09/21/21 15:23> Assessment and Plan: Based on the echo results, that showed normal systolic heart function with an EF of 50-60%, and indeterminate diastolic heart function; so his congestive heart failure appears to be related to diastolic function type heart failure. <Aure Reddy NP - Last Filed: 09/21/21 16:23>
[2021-09-22] VITALS (13 sets, daily range): BP systolic 141; BP diastolic 79; PULSE 99–114; RESP 22–32; TEMP 36.2; O2SAT 92–95
[2021-09-22] MEDS: IPRATROPIUM BR 0.02% INH SOLN 0.5 MG/2.5 ML VIAL INHALATION ×2 (00:08→04:28)
[2021-09-22] MEDS: ALBUTEROL SULFATE NEB 2.5 MG/0.5 ML INH INHALATION ×2 (00:08→04:28)
[2021-09-22] MEDS: cefTRIAXone 2 GM in SODIUM CHLORIDE 0.9% IV 100 ML 200 ML IVPB (02:07)
[2021-09-22] MEDS: methylPREDNISolone SOD SUCC 40 MG VIAL IV PUSH (02:56)
[2021-09-22 05:20] LABS: Hematocrit 33.4 % (42.0-52.0); Mean Corpuscular HGB Conc 32.9 g/dl (32-36); Mean Corpuscular Hemoglobin 33.4 pg (26-34); Mean Corpuscular Volume 101.5 fl (80-100); Mean Platelet Volume 12.2 fl (7.4-10.4); Platelet Count Result 243 k/mm3 (150-375); Red Blood Count 3.29 M/mm3 (4.6-6.20); Red Cell Distribution Width 14.6 % (11.5-14.5); White Blood Count 19.5 K/mm3 (4.5-10.0)
--- NOTE | 2021-09-22 05:37 | PC.NURSE ---
Patient becoming more drowsy, pulling off mask, increased work of breathing. Family notified and wants patient to be comfortable. Family to come up, MD ordered comfort measures.
[2021-09-22 05:45] LABS: Alanine Aminotransferase 28 U/L (4-50); Albumin Level 3.3 g/dL (3.5-5.1); Alkaline Phosphatase 101 U/L (38-126); Anion Gap 16 mmol/L (8-16); Aspartate Amino Transferase 32 U/L (17-59); Bilirubin,Total 0.2 mg/dL (0.2-1.3); Blood Urea Nitrogen 99 mg/dL (9-20); Calcium 7.8 mg/dL (8.4-10.2); Carbon Dioxide 21 mmol/L (22-30); Chloride 103 mmol/L (98-107); Creatine Kinase 360 U/L (55-170); Estimated CRCL calculation 14 ml/min; Estimated Glomerular Filt Rate 16; Glucose 183 mg/dL (65-110); Phosphorus 8.8 mg/dL (2.5-4.5); Potassium 4.8 mmol/L (3.4-5.0); Sodium 140 mmol/L (137-145)
[2021-09-22 06:13] LABS: Band Neutrophils Percent 7 % (0-6); Lymphocytes Absolute Manual 0.19 K/mm3 (1.1-4.5); Monocytes Absolute Manual 0.19 K/mm3 (0.1-0.90); Monocytes Percent Manual 1 % (3-9); Neutrophils Absolute Manual 19.11 K/mm3 (1.3-6.7); Neutrophils Percent Manual 91 % (46-73); Total Cells Counted 100
[2021-09-22 06:14] LABS: Anisocytosis 1+ (NORMAL); Platelet Estimate Adequate (Adequate)
[2021-09-22] MEDS: MORPHINE SULFATE (*CRX) 2 MG/ML INJ IV PUSH ×2 (06:24→10:48)
[2021-09-22] MEDS: LORazepam INJ (*CRX) 2 MG/ML VIAL IV PUSH ×2 (06:24→11:02)
--- NOTE | 2021-09-22 09:15 | PM.PNCARD ---
Progress Note: A&P Assessment and Plan (1) COPD exacerbation: Code(s): J44.1 - Chronic obstructive pulmonary disease with (acute) exacerbation Status: Acute Assessment and Plan: Chronic respiratory failure on home O2. Came into the hospital with complaints of shortness of breath, ABG consistent with hypoxemic respiratory failure. (2) CHF (congestive heart failure): Qualifiers: Heart failure chronicity: acute on chronic Heart failure type: unspecified Qualified Code(s): I50.9 - Heart failure, unspecified Code(s): I50.9 - Heart failure, unspecified Status: Acute Assessment and Plan: Patient primarily presented with acute on chronic hypoxemic respiratory failure. He is currently on BiPAP and is being managed by primary team and pulmonology. His found to have elevated NTProBNP. He also has mild troponin elevation which is likely non ACS in the setting of respiratory failure, renal insufficiency. No acute ST segment abnormality on EKG. Patient is in sinus tachycardia which is appropriate in the setting of respiratory failure. V/Q scan reportedly nondiagnostic. Echocardiogram with Doppler has been ordered, results are pending at this time. Patient's code status has been changed to DNR. Conservative cardiac management is being anticipated. (3) TAE (acute kidney injury): Code(s): N17.9 - Acute kidney failure, unspecified Status: Acute Assessment and Plan: Diuretics have been held due to acute kidney injury. Hold CLAUDIA-inhibitor for now. Management as per primary team and Nephrology. (4) Acute and chronic respiratory failure with hypoxia: Code(s): J96.21 - Acute and chronic respiratory failure with hypoxia Status: Acute Assessment and Plan: As described above. Currently on BiPAP. Prognosis guarded. Subjective Date/time seen: 09/22/21 09:15 Objective Data Vital Signs Vital Signs: Vital Signs - 24 hr 09/21/21 10:00 09/21/21 11:10 09/21/21 12:00 Temperature 36.7 C Pulse Rate 111 H 108 H 113 H Respiratory Rate 32 H 23 H Blood Pressure 102/61 Pulse Oximetry 92 95 09/21/21 13:20 09/21/21 14:00 09/21/21 15:33 Temperature Pulse Rate 103 H 109 H 105 H Respiratory Rate 28 H 23 H Blood Pressure Pulse Oximetry 96 96 09/21/21 15:35 09/21/21 15:50 09/21/21 16:00 Temperature 36.7 C Pulse Rate 105 H 106 H 105 H Respiratory Rate 22 H 26 H 27 H Blood Pressure 106/74 Pulse Oximetry 94 09/21/21 18:00 09/21/21 19:59 09/21/21 20:00 Temperature 36.4 C L Pulse Rate 106 H 104 H 105 H Respiratory Rate 30 H 24 H Blood Pressure 123/68 Pulse Oximetry 100 94 09/21/21 20:04 09/21/21 20:12 09/21/21 22:00 Temperature Pulse Rate 104 H 101 H 102 H Respiratory Rate 24 H 24 H Blood Pressure Pulse Oximetry 09/21/21 23:12 09/21/21 23:35 09/22/21 00:00 Temperature 36.7 C Pulse Rate 106 H 105 H 100 Respiratory Rate 24 H 34 H Blood Pressure 127/71 Pulse Oximetry 96 95 92 09/22/21 00:06 09/22/21 00:09 09/22/21 00:16 Temperature Pulse Rate 106 H 107 H 102 H Respiratory Rate 30 H 23 H 25 H Blood Pressure Pulse Oximetry 95 09/22/21 02:00 09/22/21 04:00 09/22/21 04:26 Temperature 36.2 C L Pulse Rate 107 H 107 H 110 H Respiratory Rate 32 H 24 H Blood Pressure 141/79 H Pulse Oximetry 93 94 09/22/21 04:28 09/22/21 04:35 09/22/21 06:00 Temperature Pulse Rate 110 H 111 H 106 H Respiratory Rate 23 H 22 H Blood Pressure Pulse Oximetry 09/22/21 08:00 Temperature Pulse Rate 99 Respiratory Rate Blood Pressure Pulse Oximetry Intake/Output Intake/Output: Intake & Output 09/19/21 09/20/21 09/21/21 09/22/21 23:59 23:59 23:59 23:59 Intake Total 350 350 Output Total 1100 350 Balance -750 0 Meds/Results Medications: Active Medications Generic Name Dose Route Start Last Admin Trade Name Freq PRN Reason Stop Dose Admin Albuterol
--- NOTE | 2021-09-22 09:21 | PC.NURSE ---
Family is at bedside. Family stated patient is comfort measures only and they are waiting for Hospice company to come for consultation. Family has refused all food, medication for patient except for comfort medications.
--- NOTE | 2021-09-22 12:01 | PM.DS ---
DS: Admitting Diagnosis Discharge Date 09/22/2021 Admitting Diagnosis Acute exacerbation of COPD, acute on chronic respiratory failure with hypoxia, a paced CT's of both lungs on the chest x-ray, acute kidney injury, CHF, osteoporosis, multiple rib fractures DS: Discharge Diagnosis Discharge Diagnosis (1) Acute exacerbation of chronic obstructive pulmonary disease: Code(s): J44.1 - Chronic obstructive pulmonary disease with (acute) exacerbation Status: Acute Assessment and Plan: Discharged to HOSPICE now Family Son and Daughter in law met with Hospice Agency and have agreed to Hospice, established the Hospice orders that they want and he will have, and they are ok with him starting hospice now to get his Morphine Drip started now for comfort. The patient's daughter is flying in from out of town and will be arriving around 3-5 pm later this afternoon. He is very unstable and is dependent on the continuous Bipap for ventilatory/respiratory oxygenation/support. Continuous telemetry Continuous pulse ox Bed rest Breathing Nebs and treatments stopped. Systemic stopped spoke with the patient's [id number] Emily Martinez and son within the patient's room, also present was Hospice nurse. Nephrology cloth covered helmet puller and roto rooter operator signed off. end-stage COPD for some time. getting progressively worse and weaker, with worsening respiratory symptoms. DNR code status, not a full code. COVID negative, with a D-dimer of 2.27 and his pulmonary imaging showed an intermediate probability of PE. venous Dopplers were clear, no dvt. TAE worsening, Phos and BNP increasing. (2) Acute and chronic respiratory failure with hypoxia: Code(s): J96.21 - Acute and chronic respiratory failure with hypoxia Status: Acute Assessment and Plan: Currently on BiPAP Discharged to HOSPICE now Family Son and Daughter in law met with Hospice Agency and have agreed to Hospice, established the Hospice orders that they want and he will have, and they are ok with him starting hospice now to get his Morphine Drip started now for comfort. See above COPD exacerbation plan (3) Ribs, multiple fractures: Code(s): S22.49XA - Multiple fractures of ribs, unspecified side, initial encounter for closed fracture Status: Acute Assessment and Plan: Patient with history of osteoporosis Pain management - continues to point and hold onto left chest wall laterally - daughter in law confirmed patient was having left sided chest pain at home prior to admission. Discharged to HOSPICE now Family Son and Daughter in law met with Hospice Agency and have agreed to Hospice, established the Hospice orders that they want and he will have, and they are ok with him starting hospice now to get his Morphine Drip started now for comfort. Patient now resting, while on BiPAp. (4) Opacities of both lungs present on chest x-ray: Code(s): R91.8 - Other nonspecific abnormal finding of lung field Status: Acute Assessment and Plan: Due to multiple rib fractures could this be secondary to trauma resulting in contusion lung. due to bipap dependency, unable to get CT high-resolution of the chest Supportive care Discharged to HOSPICE now Family Son and Daughter in law met with Hospice Agency and have agreed to Hospice, established the Hospice orders that they want and he will have, and they are ok with him starting hospice now to get his Morphine Drip started now for comfort. (5) TAE (acute kidney injury): Code(s): N17.9 - Acute kidney failure, unspecified Status: Acute Assessment and Plan: Unknown baseline as no previous medical records to review at this time. Munoz catheter in Renal ultrasound showed: Renal cystsRenal cortical thinning.No hydronephrosis Discharged to HOSPICE now Family Son and Daughter in law met with Hospice Agency and have agreed to Hospice, established the Hospice orders that they want and he will have, and
[2021-09-23 20:59] LABS: Myoglobin, Urine <27 mcg/L (<28)
[2021-09-25 15:58] LABS: Chloride Rand Ur 34 mmol/L (32-290); Chloride/Creatinine Rand Ur 47 (23-275); Creatinine Random Urine 72 mg/dL (20-320)
[2021-09-26 04:40] LABS: Kappa\\Lambda Light Chains 1.22 (0.26-1.65); Lambda Light Chain 24.8 mg/L (5.7-26.3)
== END 2021-09-22 12:00 | disposition hospice, inpatient (51) | DRG 190 ==
LOC: ANHED 18:49 → ANHIMU 21:09
PROVIDERS: Emergency Medicine; Internal Medicine; Internal Medicine Nephrology; Admitting Provider Family Medicine; Emergency Provider Emergency Medicine; Visit Provider Nurse Practitioner
DX: J44.1 Chronic obstructive pulmonary disease with (acute) exacerbation; J96.21 Acute and chronic respiratory failure with hypoxia; J18.9 Pneumonia, unspecified organism; S22.49XA Multiple fractures of ribs, unspecified side, initial encounter for closed fracture; N17.9 Acute kidney failure, unspecified; J44.0 Chronic obstructive pulmonary disease with (acute) lower respiratory infection; R91.8 Other nonspecific abnormal finding of lung field; X58.XXXA Exposure to other specified factors, initial encounter; Z20.822 Contact with and (suspected) exposure to COVID-19; Z99.81 Dependence on supplemental oxygen; I50.9 Heart failure, unspecified; M81.0 Age-related osteoporosis without current pathological fracture; Z66 Do not resuscitate; Z79.899 Other long term (current) drug therapy; Z87.891 Personal history of nicotine dependence
CPT/HCPCS: 36415; 36600; 71045; 71046; 76775; 78580; 80048; 80053; 81001; 81050; 82436; 82550; 82570; 82805; 83735; 83874; 83880; 83883; 84100; 84156; 84300; 84443; 84484; 85025; 85380; 85610; 85730; 85999; 87040; 87086; 93005; 93306; 93970; 94002; 94003; 94640; 96374; 96375; 99291; A9270; A9540; C9803; G0378; J0456; J0696; J1940; J2060; J2270; J2920; J2930; U0003; U0005

== ENCOUNTER 2021-09-22 10:45 | HOS | payer OTHER, MEDICARE, SELFPAY ==
[2021-09-22] MEDS: MORPHINE SULFATE INJ (*CRX) 50 MG in SODIUM CHLORIDE 0.9% IV 95 ML IV CONT (13:43)
[2021-09-22] MEDS: MORPHINE SULFATE (*CRX) 2 MG/ML INJ 1 MG IV PUSH ×4 (14:53→23:41)
[2021-09-22] MEDS: LORazepam INJ (*CRX) 2 MG/ML VIAL 1 MG IV PUSH ×4 (14:54→23:40)
--- NOTE | 2021-09-22 22:12 | PC.NURSE ---
Pt transferring to room 318. Report called to Maggi on 3-Med/Surg. All questions answered. Family members at bedside.
[2021-09-22 22:15] VITALS: BP 123/66; PULSE 105; RESP 14; TEMP 36.3; O2SAT 93; O2SAT 94
--- NOTE | 2021-09-23 00:23 | PC.NURSE ---
2215 Pt arrived from IMU per stretcher. Pt unresponsive to stimuli. Respirations labored with periods of apnea. Morphine drip infusing at 2 mg/hr. Family at bedside. Will continue to monitor.
--- NOTE | 2021-09-24 17:14 | P.DN_ITS ---
Discharge Summary Date and Time Date of : 09/23/21 Time of : 00:08 Provider Pronounced By: Hallie Rouse Probable Cause of Probable Cause of : Acute respiratory failure Summary Hospital Course: Patient was admitted in acute respiratory failure, had a long history with COPD and CHF. Hat Steamer and fleet administrative assistant were consulted, medications, interventions and therapies were started including BiPAP, multiple nebulizer treatments, diuresis. Family changed his code status to DNR. Patient was unable to wean from BiPAP and family decided to transition into comfort care with [facility]. Patient was started on IV morphine and Ativan, and with family at bedside, patient . Additional Data Confirmation of as documented by pronouncing clinician: Pupillary Reflex, Palpable Pulses, Response to Stimuli, Heart Tones and Breath Sounds Name of Provider Notified: Michelle Time Provider Notified: 00:45 Provider Requests Autopsy: No Family Requests Autopsy: No Fisher [employer]ster Notified: Yes Date [facility] Notified of : 09/23/21 Time [facility] Notified of : 00:50
== END 2021-09-23 00:08 | disposition expired | DRG 951 ==
LOC: ANH3MEDSUR 09-24 13:29 → ANHIMU 09-24 13:29
PROVIDERS: Admitting Provider Family Medicine; Visit Provider Nurse Practitioner
DX: Z51.5 Encounter for palliative care (principal); J96.00 Acute respiratory failure, unspecified whether with hypoxia or hypercapnia; J44.9 Chronic obstructive pulmonary disease, unspecified; I50.9 Heart failure, unspecified; Z66 Do not resuscitate
CPT/HCPCS: A9270; J2060; J2270